=== PATIENT | male | born 1960 | race Two or more races ===

== ENCOUNTER → 2017-09-11 | Outpatient (CLI) | payer OTHER | END | disposition home or self-care (01) | LOC: SONOGRAMA 10:58 → MAMO-SONO 11:15 | DX: R94.6 Abnormal results of thyroid function studies (principal) ==

== ENCOUNTER 2017-11-22 12:39 | Emergency (ER) | payer OTHER ==
[~2017-11-22] VITALS: Ht 188 cm; Wt 106.1 kg
[2017-11-22] MEDS ORDERED: AVAPRO150 MG (12:58)
[2017-11-22] MEDS ORDERED: SYNTHROID150 MCG (12:58)
== END 2017-11-22 17:49 | disposition home or self-care (01) ==
LOC: ER 12:39
DX: S60.011A Contusion of right thumb without damage to nail, initial encounter (principal); W22.8XXA Striking against or struck by other objects, initial encounter; Y93.89 Activity, other specified; Y92.89 Other specified places as the place of occurrence of the external cause; Y99.8 Other external cause status

== ENCOUNTER 2018-01-30 19:53 | Inpatient (IN) | payer OTHER ==
[~2018-01-30] VITALS: Ht 190.5 cm; Wt 106.6 kg
[~2018-01-30 19:53] MED LIST: AVAPRO150 MG; SYNTHROID150 MCG
[2018-02-05] MEDS ORDERED: AMOX-CLAV 875-1 EACH PO (10:26)
[2018-02-05] MEDS ORDERED: FLAGYL500MG PO (10:26)
[2018-02-05] MEDS ORDERED: INTESTINEX680 M1 PO (10:26)
[2018-02-05] MEDS ORDERED: ZANTAC150 MG PO (10:27)
== END 2018-02-05 13:06 | disposition home or self-care (01) | DRG 392 ==
LOC: EMR PED 19:53 → ER 19:58 → SURH 01-31 10:05 → SEC-K 01-31 10:05 → MEDJ 01-31 11:05 → MEDI 01-31 11:05 → SURH 01-31 21:26
DX: K57.32 Diverticulitis of large intestine without perforation or abscess without bleeding (principal); I10 Essential (primary) hypertension